=== PATIENT | male | born 1970 | race Caucasian/White ===

== ENCOUNTER 2023-06-01 08:31 | Emergency (ER) | payer BC, SELFPAY ==
--- NOTE | ~2023-06-01 | XR_ITS ---
XR tibia fibula LT 2V DATE: 06/01/2023 09:23 INDICATION: Injury, bruising, anterior mid lower leg TECHNIQUE: AP and lateral views COMPARISON: None FINDINGS: No fracture or dislocation, periosteal reaction or bone destruction of the tibia or fibula. Normal alignment at the knee and ankle joints. Prominent plantar calcaneal enthesopathy. IMPRESSION: No fracture or dislocation or bone destruction of the tibia or fibula Prominent plantar calcaneal enthesopathy Reviewed, dictated and finalized at location A. IMPRESSION: No fracture or dislocation or bone destruction of the tibia or fibu la Prominent plantar calcaneal enthesopathy
[2023-06-01 08:35] VITALS: PULSE 85; RESP 18; TEMP 37; O2SAT 98
--- NOTE | 2023-06-01 09:14 | ED.LOWEXIN ---
HPI - Extremity Injury (Lower) General Chief Complaint: Extremity Injury, Lower Stated Complaint: left leg injury Time Seen by Provider: 06/01/23 09:00 History of Present Illness HPI Narrative: 52-year-old male presents to the emergency department for ecchymosis and swelling to his left lower extremity. Patient states 1 week ago, he was getting out of his friend's pool and the ladder broke while he was climbing up of it. Patient states he hit his mena on the ladder and the ladder scraped down rest of his leg. He reported to the emergency department today because he wants to make sure he does not have a fracture or a DVT. States he has been googling reasons to have lower extremity edema came across DVT. He is able to ambulate. He has been taking ibuprofen with improvement. Reports tetanus is up-to-date. Related Data Allergies Allergy/AdvReac Type Severity Reaction Status Date / Time No Known Allergies Allergy Unverified 06/01/23 08:39 Review of Systems Review of Systems: CONSTITUTIONAL: Denies fever, chills EYES: Denies visual changes, redness, or discharge. ENT: Denies rhinorrhea, congestion, sore throat, or otalgia. CARDIOVASCULAR: Denies chest pain, palpitations, or edema. RESPIRATORY: Denies cough or dyspnea. GASTROINTESTINAL: Denies abdominal pain, nausea, vomiting, or diarrhea. GENITOURINARY: Denies dysuria or hematuria. SKIN: See HPI MUSCULOSKELETAL: See HPI NEUROLOGIC: Denies headache, numbness, dizziness, or weakness. PSYCHIATRIC: Denies anxiety or depression. Exam Narrative: GENERAL: Well-appearing, in no acute distress. Patient resting comfortably in exam bed. He is pleasant and conversational HEAD: Normocephalic NECK: Supple. CHEST: No respiratory distress. Clear to auscultation, no adventitious breath sounds. HEART: Regular rate and rhythm. No murmur heard. Normal peripheral pulses. EXTREMITIES: Left lower extremity with ecchymosis and tenderness from the anterior aspect of the proximal tib-fib to distal two thirds tib-fib. No tenderness to knee or ankle, or remainder of lower extremity. There is 1+ pitting edema throughout the ankle and tib/fib. No tenderness to the calf or deep venous system, negative Homans. Radial pulse 2+. Sensation intact. Cap refill less than 2. Strength 5/5 in LLE. Pt ambulatory with steady gait. SKIN: Ecchymosis overlying the anterior aspect of the left tib-fib. There is 2 superficial small abrasions with healing scabs. No surrounding erythema, fluctuation or induration. No drainage. NEURO: No focal deficits. Alert and oriented x3. PSYCH: Normal mood and affect. Course Vital Signs Vital signs: Vital Signs Temperature 98.6 F 06/01/23 08:35 Pulse Rate 85 06/01/23 08:35 Respiratory Rate 18 06/01/23 08:35 Pulse Oximetry 98 06/01/23 08:35 Oxygen Delivery Room Air 06/01/23 08:35 Temperature 98.6 F 06/01/23 08:35 Pulse Rate 70 06/01/23 10:49 Respiratory Rate 18 06/01/23 10:49 Blood Pressure 108/76 06/01/23 10:49 Pulse Oximetry 98 06/01/23 10:49 Oxygen Delivery Room Air 06/01/23 08:35 MDM - Extremity Injury (Lower) MDM Narrative Medical decision making narrative: 52-year-old male reports for evaluation for ecchymosis and tenderness to the left anterior tib-fib after a mechanical fall 1 week ago. See HPI for further history. Vitals are stable. Exam significant for the above. He is neurovascularly intact. X-rays obtained showing no acute fracture or dislocation. CBC and CMP are unremarkable. D-dimer is 0.38. Well score is low risk. He is not having signs or symptoms of PE. Imaging discussed. Edema likely secondary to soft tissue injury. I encouraged him to follow up with his PCP in the following few days for reevaluation, RICE and take Tylenol for pain. Strict ED precautions were discussed. He is agreeable tot he plan and verbalized understanding. D/C in stable condition. Medical Records Attestation: I reviewed the lizbeth
[2023-06-01 09:49] VITALS: BP 126/93; PULSE 70; RESP 18; O2SAT 97
[2023-06-01 10:16] LABS: Basophils Absolute Auto 0.1 K/mm3 (0.0-0.1); Basophils Percent Auto 0.7 % (0.2-1.2); Eosinophils Absolute Auto 0.5 K/mm3 (0-0.3); Eosinophils Percent Auto 6.5 % (0-4.4); Hematocrit 44.9 % (42.0-52.0); Immature Granulocyte Absolute 0.04 K/mm3 (0.00-0.031); Immature Granulocyte Percent A 0.6 % (0-0.5); Lymphocytes Percent Auto 35.2 % (18.3-44.2); Mean Corpuscular HGB Conc 33.4 g/dl (32-36); Mean Corpuscular Hemoglobin 30.2 pg (26-34); Mean Corpuscular Volume 90.3 fl (80-100); Mean Platelet Volume 9.1 fl (7.4-10.4); Monocytes Absolute Auto 0.6 K/mm3 (0.1-0.6); Monocytes Percent Auto 8.7 % (2.6-8.5); Neutrophils Absolute Auto 3.4 K/mm3 (1.3-6.7); Neutrophils Percent Auto 48.3 % (45.5-73.1); Platelet Count Result 240 k/mm3 (150-375); Red Blood Count 4.97 M/mm3 (4.6-6.20); Red Cell Distribution Width 12.8 % (11.5-14.5); White Blood Count 7.1 K/mm3 (4.5-10.0)
[2023-06-01 10:24] LABS: Anion Gap 11 mmol/L (8-16); Blood Urea Nitrogen 12 mg/dL (9-20); Calcium 8.9 mg/dL (8.4-10.2); Carbon Dioxide 23 mmol/L (22-30); Chloride 103 mmol/L (98-107); Estimated CRCL calculation 160 ml/min; Estimated Glomerular Filt Rate > 60; Glucose 95 mg/dL (65-110); Potassium 4.2 mmol/L (3.4-5.0); Sodium 137 mmol/L (137-145)
[2023-06-01 10:26] LABS: Prothrombin Time 13.2 Seconds (11.1-14.7)
[2023-06-01 10:37] LABS: D Dimer 0.38 ug/mL (<0.48)
[2023-06-01 10:49] VITALS: BP 108/76; PULSE 70; RESP 18; O2SAT 98
== END 2023-06-01 10:51 | disposition home or self-care (01) ==
PROVIDERS: Emergency Provider Physician Assistant; PCP Family Medicine Sports Medicine
DX: S80.12XA Contusion of left lower leg, initial encounter (principal); W22.09XA Striking against other stationary object, initial encounter
CPT/HCPCS: 36415; 73590; 80048; 85025; 85380; 85610; 85730; 99283